=== PATIENT | female | born 1980 | race Caucasian/White ===

== ENCOUNTER 2018-09-03 18:08 | Outpatient (REF) | payer BC, SELFPAY ==
[2018-09-03 20:04] LABS: Hemoglobin A1C 6.3 % (4.5-6.2)
[2018-09-03 20:09] LABS: Cholesterol 179 mg/dL (50-200); Glucose 90 mg/dL (70-100); HDL Cholesterol 50 mg/dL (40-60); LDL CHOLESTEROL 110 mg/dL (<100); TSH 3.18 uIU/mL (0.358-3.74); Triglyceride 96 mg/dL (30-150)
== END 2018-09-03 18:28 ==
LOC: NCHCN 18:08
PROVIDERS: PCP Family Medicine; Visit Provider Family Medicine
DX: R73.09 Other abnormal glucose (principal); E66.9 Obesity, unspecified
CPT/HCPCS: 80061; 82947; 83721; 83036; 84443

== ENCOUNTER 2018-09-20 02:54 | Outpatient (CLI) | payer BC, SELFPAY | END 2018-09-20 03:14 | PROVIDERS: PCP Family Medicine; Visit Provider Dietitian, Registered | DX: E66.9 Obesity, unspecified (principal); Z68.42 Body mass index [BMI] 45.0-49.9, adult; Z71.3 Dietary counseling and surveillance | CPT/HCPCS: 97802 ==

== ENCOUNTER 2018-09-23 01:49 | Outpatient (CLI) | payer BC, SELFPAY ==
--- NOTE | 2018-09-23 16:00 | SATEXT_ITS ---
Assessment: Alyssa presents for nutritional counseling for weight management in preparation for bariatric [place] [facility] [place] She reports that in the past week she has stopped eating simple sugars and has lost five pounds. She states she feels much improved. She also states that she has reduced her overall carbohydrate intake. She verbalizes a high motivation to make a life long commitment to weight management. She is eating almonds, cheese, and dried cranberries for breakfast. She has a salad with protein for lunch. She has a broiled protein, a small amount of a starch, and veggies at dinner. She is not snacking. She drinks water or non- caloric beverages. At this time, her physical activity has been the walking she has to do at work. She is 64.5 and 284.6 lbs. Her BMI is 48.1 kg/m2. Nutritional Diagnosis: Class 3 obesity related to a history of excess energy intake and physical inactivity as evidenced by a BMI of 48.1kg/m2. Intervention: Acknowledged her excellent efforts to make changes in her eating habits that have resulted in weight reduction thus far. Encouraged her to continue to keep up with those efforts. With regard to her physical activity, she made a plan to walk for one hour, three times per week each week until her next visit with me. Monitoring and Evaluation: 1. Will monitor her progress monthly, her PO intake, her physical activity, and her weight. 2. Will evaluate her progress on her action plans and adjust her care plan accordingly. Thank you for the referral. Total time spent with patient face to face was 29 minutes.
== END 2018-09-23 02:09 ==
PROVIDERS: PCP Family Medicine; Visit Provider Dietitian, Registered
DX: E66.9 Obesity, unspecified (principal); Z68.42 Body mass index [BMI] 45.0-49.9, adult; Z71.3 Dietary counseling and surveillance
CPT/HCPCS: 97802

== ENCOUNTER 2018-10-27 02:02 | Outpatient (CLI) | payer BC, SELFPAY ==
--- NOTE | 2018-10-27 15:00 | NS.NUTBLAN_ITS ---
Alyssa returns for follow up for nutritional counseling for weight management nutrition therapy in preparation for bariatric surgery. She continues to demonstrate a high motivation to make a life long commitment to weight management. She is having a protein shake at breakfast. She has a yogurt and a salad at lunch. She has a vegetable and a meat at dinner. She continues to eliminate simple sugars. She is working towards drinking 85 oz. of water daily. She walks 3 days per week for 45 minutes.each time. Encouraged her to keep up with what she has been doing. Her action plan is to increase her walking to 5 days per week. She is 63.5 and her weight is 277.9 lbs. Her BMI is 47 kg/m2. Will monitor her progress including PO intake and physical activity. Will evaluate nutrition care plan ongoing and adjust as needed. Total time spent with patient face to face was 15 minutes.,
== END 2018-10-27 02:22 ==
PROVIDERS: PCP Family Medicine; Visit Provider Dietitian, Registered
DX: E66.8 Other obesity (principal); Z68.42 Body mass index [BMI] 45.0-49.9, adult; Z71.3 Dietary counseling and surveillance
CPT/HCPCS: 97803

== ENCOUNTER 2018-11-03 14:46 | Outpatient (CLI) | payer BC, SELFPAY ==
[2018-11-03 16:43] LABS: Ferritin 25 ng/mL (8-388)
== END 2018-11-03 15:06 ==
PROVIDERS: PCP Family Medicine; Visit Provider Nurse Practitioner
DX: M25.50 Pain in unspecified joint (principal)
CPT/HCPCS: 36415; 82728

== ENCOUNTER 2018-12-03 02:05 | Outpatient (CLI) | payer BC, SELFPAY ==
--- NOTE | 2018-12-03 15:15 | NS.NUTBLAN_ITS ---
DESCRIPTION: Alyssa Hills presents for medical nutrition therapy follow up for bariatric surgery. This is her 3rd consultation. She remains diligent about her food and lifestyle choices. Sandra eats same for breakfast and supper, however she now uses lettuce and pickle in place of bread in her egg sandwich. She is eating no sugar. Otherwise meals are the same. She is down to 1day/week drinking diet Mt. Dew, otherwise she drinks unsweetened iced tea and water with sweet stevia drops. She tracks her steps and is now working at the [employer] and her steps have increased. She is not able to sit all day at work and considers this her physical activity at this time. Weight today: 266.1 Height 64.5 inches BMI: 45 Alyssa is pleased with her progress and she is encouraged to give up her carbonated beverage over the next wek. Discussed any concerns she has for meeting the criteria for having surgery and none were voiced. She plans to maintain her current regimen and agrees to go 1 week without carbonated beverage.
== END 2018-12-03 02:25 ==
PROVIDERS: PCP Family Medicine; Visit Provider Dietitian, Registered
DX: E66.8 Other obesity (principal); Z71.3 Dietary counseling and surveillance
CPT/HCPCS: 97802

== ENCOUNTER 2019-11-07 16:35 | Outpatient (REF) | payer BC, SELFPAY ==
[2019-11-07 19:24] LABS: FREE T4 0.89 ng/dL (0.76-1.46); Hemoglobin A1C 5.5 % (3.8-5.6)
== END 2019-11-07 16:55 ==
LOC: NCHCN 16:35
PROVIDERS: PCP Family Medicine; Visit Provider Physician Assistant Medical
DX: K59.09 Other constipation (principal); R73.03 Prediabetes
CPT/HCPCS: 83036; 84439; 84443

== ENCOUNTER 2021-06-13 13:35 | Outpatient (REF) | payer BC, SELFPAY ==
[2021-06-13 19:21] LABS: Abs Immature Grans 0.02 10^3/uL (0.0-0.06); Absolute Basophil Count 0.02 10^3/uL (0.0-0.2); Absolute Eosinophil Count 0.07 10^3/uL (0.0-0.7); Absolute Lymphocyte Count 1.43 10^3/uL (1.2-3.4); Absolute Monocyte Count 0.32 10^3/uL (0.1-0.8); Basophils % 0.5; Eosinophils % 1.9; HCT 41.2 % (36.0-46.0); HGB 13.7 g/dL (11.2-15.7); Immature Grans % 0.5; Lymphocytes % 38.5; MCH 30.9 pg (27.0-33.0); MCHC 33.3 % (32.0-36.0); MPV 9.3 fL (8.0-11.0); Monocytes % 8.6; Nucleated RBC 0 %; Platelet Count 239 10^3/uL (130-400); RBC 4.43 10^6/uL (3.93-5.22); RDW 11.9 % (11.7-14.6); RDW-SD 41.1 fL; WBC 3.71 10^3/uL (4.4-10.8)
[2021-06-13 19:23] LABS: Absolute Neutrophil Count 1.86 10^3/uL (1.2-6.7)
[2021-06-13 19:30] LABS: ALT 39 U/L (14-59); AST 26 U/L (15-37); Alkaline Phosphatase 85 U/L (46-116); Anion Gap 6.4 mmol/L (3-11); BUN 8 mg/dL (7-18); Bilirubin, Total 0.7 mg/dL (0.2-1.0); CO2 29.6 mmol/L (21.0-32.0); CREATININE 0.8 mg/dL (0.55-1.02); Calcium 8.8 mg/dL (8.5-10.1); Chloride 106 mmol/L (98-107); Glucose 95 mg/dL (74-106); Potassium 4.1 mmol/L (3.5-5.1); Sodium 142 mmol/L (136-145); Total Protein 6.9 g/dL (6.4-8.2)
[2021-06-17 09:38] LABS: Hepatitis B Surface Ab Negative (See Note)
[2021-06-17 10:02] LABS: Hepatitis B Surface Ag Negative (Negative)
[2021-06-17 10:37] LABS: HIV-1/2 Ag & Ab Screen Negative (Negative)
[2021-06-17 10:38] LABS: Hep B Core Antibody Negative (Negative)
[2021-06-17 10:46] LABS: Hepatitis C Ab w Rflx HCV PCR Negative (Negative)
== END 2021-06-13 13:36 | disposition home or self-care (01) ==
LOC: NCHCN 13:35
PROVIDERS: PCP Family Medicine; Visit Provider Nurse Practitioner Family
DX: Z20.2 Contact with and (suspected) exposure to infections with a predominantly sexual mode of transmission (principal)
CPT/HCPCS: 80053; 86704; 86706; 86803; 87340; 87389; 87491; 87591; 85025; 87480; 87510; 87660

== ENCOUNTER 2021-07-29 15:21 | Outpatient (REF) | payer BC, SELFPAY ==
[2021-07-29 20:16] LABS: ALT 38 U/L (14-59); AST 33 U/L (15-37); Albumin 4.1 g/dL (3.4-5.0); Alkaline Phosphatase 80 U/L (46-116); Anion Gap 7.4 mmol/L (3-11); BUN 5 mg/dL (7-18); Bilirubin, Total 0.6 mg/dL (0.2-1.0); CO2 27.6 mmol/L (21.0-32.0); CREATININE 0.7 mg/dL (0.55-1.02); Chloride 104 mmol/L (98-107); Glucose 85 mg/dL (74-106); Potassium 3.7 mmol/L (3.5-5.1); Sodium 139 mmol/L (136-145); Total Protein 6.7 g/dL (6.4-8.2)
[2021-07-31 10:17] LABS: HIV-1/2 Ag & Ab Screen Negative (Negative)
[2021-07-31 10:54] LABS: Syphilis Serology (RPR) Negative (Negative)
[2021-07-31 12:29] LABS: Chlamydia Result Negative (Negative); GC Result Negative (Negative)
== END 2021-07-29 15:22 | disposition home or self-care (01) ==
LOC: NCHCN 15:21
PROVIDERS: PCP Family Medicine; Visit Provider Nurse Practitioner Family
DX: Z20.2 Contact with and (suspected) exposure to infections with a predominantly sexual mode of transmission (principal); Z11.4 Encounter for screening for human immunodeficiency virus [HIV]
CPT/HCPCS: 80053; 87389; 87491; 87591; 86592

== ENCOUNTER 2021-07-30 15:11 | Outpatient (REF) | payer BC, SELFPAY | END 2021-07-30 15:12 | disposition home or self-care (01) | LOC: NCHCN 15:11 | PROVIDERS: PCP Family Medicine; Visit Provider Family Medicine | DX: M54.50 Low back pain, unspecified (principal) | CPT/HCPCS: 87086 ==

== ENCOUNTER 2021-08-28 15:48 | Outpatient (REF) | payer BC, SELFPAY ==
[2021-08-30 10:38] LABS: HIV-1/2 Ag & Ab Screen Negative (Negative)
== END 2021-08-28 15:49 | disposition home or self-care (01) ==
LOC: NCHCN 15:48
PROVIDERS: PCP Family Medicine; Visit Provider Physician Assistant Medical
DX: Z20.2 Contact with and (suspected) exposure to infections with a predominantly sexual mode of transmission (principal)
CPT/HCPCS: 87389

== ENCOUNTER 2022-02-25 17:52 | Outpatient (REF) | payer BC, SELFPAY ==
[2022-02-27 10:00] LABS: Hepatitis C Ab w Rflx HCV PCR Negative (Negative)
[2022-02-27 10:04] LABS: Syphilis Serology (RPR) Negative (Negative)
== END 2022-02-25 17:53 | disposition home or self-care (01) ==
LOC: NCHCN 17:52
PROVIDERS: PCP Family Medicine; Visit Provider Physician Assistant Medical
DX: Z20.2 Contact with and (suspected) exposure to infections with a predominantly sexual mode of transmission (principal); Z11.59 Encounter for screening for other viral diseases
CPT/HCPCS: 86803; 86592

== ENCOUNTER 2023-10-14 18:29 | Outpatient (REF) | payer SELFPAY ==
[2023-10-15 09:37] LABS: Varicella IgG Antibody Positive (See Note)
== END 2023-10-14 18:30 | disposition home or self-care (01) ==
LOC: LBO 18:29
PROVIDERS: PCP Family Medicine; Visit Provider Nurse Practitioner Family
DX: Z02.1 Encounter for pre-employment examination (principal)
CPT/HCPCS: 36415; 86787

== ENCOUNTER 2024-11-28 02:21 | Outpatient (CLI) | payer MEDICAID, SELFPAY ==
--- NOTE | 2024-11-28 15:51 | DI.RAD_ITS ---
Exam(s) XR SHOULDER RT COMPLETE 2+V EXAM: XR SHOULDER RT COMPLETE 2+V CLINICAL HISTORY: Rt posterior shoulder pain, M25.511. TECHNIQUE: 2D digital imaging was performed. Five views. COMPARISON: No exams were available for comparison FINDINGS: BONES: No acute fracture is present. No bony destructive lesion is seen. JOINTS: No dislocation present. There are no significant degenerative changes. SOFT TISSUE: Normal. IMPRESSION: Unremarkable radiographs of the right shoulder. DATA REPOSITORY: RADIATION DOSE DELIVERED:
== END 2024-11-28 02:41 ==
PROVIDERS: PCP Family Medicine; Visit Provider Family Medicine
DX: M25.511 Pain in right shoulder (principal)
CPT/HCPCS: 73030